=== PATIENT | female | born 1995 | race Two or more races ===

== ENCOUNTER 2017-11-07 13:19 | Emergency (ER) | payer MEDICAID, OTHER ==
[~2017-11-07] VITALS: Ht 162.6 cm; Wt 95.0 kg
[2017-11-07 13:23] VITALS: BP 142/88
[2017-11-07] MEDS ORDERED: ACETAMINOPHEN 500MG TABLET PO ONE (16:15)
[2017-11-07] MEDS ORDERED: CARISOPRODOL 350 MG TABLET PO ONE (16:15)
== END 2017-11-07 16:23 | disposition home or self-care (01) ==
LOC: ER 14:25
DX: M54.2 Cervicalgia (principal); M54.5 Low back pain; E11.9 Type 2 diabetes mellitus without complications; I10 Essential (primary) hypertension; E28.2 Polycystic ovarian syndrome; V43.52XA Car driver injured in collision with other type car in traffic accident, initial encounter; Y93.89 Activity, other specified; Y99.8 Other external cause status; Y92.410 Unspecified street and highway as the place of occurrence of the external cause
CPT/HCPCS: 72100; 72125; 81025; 99284